=== PATIENT | female | born 1945 | race Caucasian/White ===

== ENCOUNTER 2024-12-20 16:33 | Emergency (ER) | payer MEDICARE, OTHER, SELFPAY ==
[2024-12-20 16:40] VITALS: BP 188/79
[2024-12-20 16:45] VITALS: BMI 27.3
[2024-12-20 16:47] VITALS: BP 168/74
[2024-12-20 17:00] VITALS: BP 188/97
[2024-12-20 17:06] LABS: % Basophils 0.6 % (0-2); % Eosinophils 1.5 % (0-6); % Immature Granulocytes 0.2 % (0-0.5); % Lymphocytes 30.4 % (20.5-51.1); % Monocytes 9.5 % (1.7-9.3); % Neutrophils 57.8 % (42.2-75.2); Absolute Eosinophils 0.1 10^3/uL (0-0.7); Absolute Monocytes 0.6 10^3/uL (0.1-0.6); Absolute Neutrophils 3.8 10^3/uL (1.4-6.5); Hematocrit 29.6 % (37.0-47.0); Mean Corp Hgb Conc. 33.8 g/dL (33.0-37.0); Mean Corpuscular Hgb 30.8 pg (27.0-31.0); Mean Corpuscular Volume 91.1 fL (81.0-99.0); Mean Platelet Volume 10.8 fL (7.4-10.4); Nucleated Red Blood Cells % 0 %; Platelet Count 289 10^3/uL (130-400); Red Blood Cell Count 3.25 10^6/uL (4.20-5.40); Red Cell Dist. Width 13.8 % (11.5-14.5); White Blood Cell Count 6.5 10^3/uL (4.8-10.8)
[2024-12-20 17:21] LABS: ALT (SGPT) 12 U/L (0-35); AST (SGOT) 17 U/L (14-36); Albumin 3.2 g/dl (3.5-5.0); Alkaline Phosphatase 55 U/L (38-126); Blood Urea Nitrogen 18 mg/dl (7-17); Calcium 8.1 mg/dl (8.4-10.2); Carbon Dioxide 20 mmol/L (22-30); Chloride 114 mmol/L (98-107); Estimated Creatinine Clearance 60 ml/min; Glucose 97 mg/dl (70-99); Potassium 3.9 mmol/L (3.5-5.1); Sodium 138 mmol/L (135-145); Total Bilirubin 0.5 mg/dl (0.2-1.3); eGFR > 60.00
[2024-12-20 17:35] VITALS: BP 195/122
[2024-12-20 18:00] VITALS: BP 187/104
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
[2024-12-20 18:52] VITALS: BP 166/79
--- NOTE | 2024-12-20 20:11 | EDRN ---
Patient discharge and needing to go to the bathroom, assisted patient with her cane, walked into the restroom to have a bowl movement, assisted patient in getting dressed and she was wheeled out to the car.
== END 2024-12-20 20:13 | disposition home or self-care (01) ==
LOC: EMR 16:33
PROVIDERS: Emergency Medicine; EMERGENCY PHYSICIAN Emergency Medicine; FAMILY PHYSICIAN Internal Medicine
DX: T67.5XXA Heat exhaustion, unspecified, initial encounter (principal); L55.0 Sunburn of first degree; X30.XXXA Exposure to excessive natural heat, initial encounter; G35 Multiple sclerosis
CPT/HCPCS: 99284; 80053; 85025; 93005